=== PATIENT | female | born 1985 | race African-American/Black ===

== ENCOUNTER 2017-11-07 11:50 | Observation (INO) | payer BC, OTHER ==
[2017-11-07 13:12] LABS: ADD UMIC NO; UR ASCORBIC ACID NEGATIVE (NEGATIVE); UR BILIRUBIN (Dip) NEGATIVE (NEGATIVE); UR BLOOD (Dip) NEGATIVE (NEGATIVE); UR CLARITY CLEAR (CLEAR); UR COLOR YELLOW (YELLOW); UR GLUCOSE (Dip) NEGATIVE (NEGATIVE); UR KETONES (Dip) NEGATIVE (NEGATIVE); UR LEUKOCYTE ESTERASE (Dip) NEGATIVE Leu/ul (NEGATIVE); UR NITRITE (Dip) NEGATIVE (NEGATIVE); UR SPECIFIC GRAVITY (Dip) 1.013 (1.003-1.030); UR TOTAL PROTEIN (Dip) NEGATIVE (NEGATIVE); UR UROBILINOGEN (Dip) NEGATIVE (NEGATIVE)
[2017-11-07 13:25] LABS: AMPHETAMINE/METHAMPHETAMINE Negative (NEGATIVE); BARBITURATES Negative (NEGATIVE); BENZODIAZEPINES Negative (NEGATIVE); CANNABINOIDS Negative (NEGATIVE); OPIATES Negative (NEGATIVE)
[2017-11-07 13:26] LABS: COCAINE Positive (NEGATIVE)
[2017-11-07 14:55] LABS: ADD MAN DIFF? NO
[2017-11-07 15:02] LABS: BASOPHILS % 0.5 % (0.0-2.0); EOSINOPHILS % 0.5 % (0.0-7.0); HEMATOCRIT 35.6 % (37.0-47.0); HEMOGLOBIN 11.3 g/dl (12.0-16.0); LYMPHOCYTES # 1.8 10^3/ul (0.8-2.9); LYMPHOCYTES % 21.7 % (15.0-51.0); MEAN CORPUSCULAR HGB CONC 31.7 g/dl (32.0-37.0); MEAN CORPUSCULAR VOLUME 88.3 fl (82.0-101.0); MEAN PLATELET VOLUME 9.5 fl (7.4-10.4); MONOCYTE # 0.5 10^3/ul (0.3-0.9); MONOCYTES % 5.8 % (0.0-11.0); NEUTROPHIL # 5.8 10^3/ul (1.6-7.5); NEUTROPHILS % 70.8 % (39.0-77.0); PLATELET COUNT 326 10^3/UL (140-415); RED BLOOD COUNT 4.03 10^6/ul (4.20-5.40); RED CELL DISTRIBUTION WIDTH 14.2 % (11.5-14.5)
[2017-11-07 15:02] LABS: WHITE BLOOD COUNT 8.1 10^3/ul (4.8-10.8)
[2017-11-07 16:11] LABS: HEPATITIS B SURFACE ANTIGEN NEGATIVE (NEGATIVE)
[2017-11-07 16:22] LABS: HIV 1&2 ANTIBODY NEGATIVE (NEGATIVE)
[2017-11-07] MEDS: LACTATED RINGER'S 1,000 ML IV (18:39)
[2017-11-07] MEDS: CALCIUM CARBONATE 500 MG CHEW TAB PO (21:17)
[2017-11-08] MEDS: LACTATED RINGER'S 1,000 ML IV (02:24)
[2017-11-08 21:46] LABS: RAPID PLASMA REAGIN NONREACTIVE (NR)
[2017-11-09 12:12] LABS: RUBELLA ANTIBODY - IGG 1.32 index; RUBELLA ANTIBODY - IGM <20.00 AU/mL
== END 2017-11-08 10:23 | disposition home or self-care (01) ==
LOC: OBT 11:50 → SDS 11:50 → L-D 12:10 → OBT 15:50 → L-D 15:50
DX: O47.1 False labor at or after 37 completed weeks of gestation (principal); Z3A.39 39 weeks gestation of pregnancy
CPT/HCPCS: 76815; 76818; 80307; 81003; 85025; 86592; 86703; 86762; 86900; 86901; 87340; 99217

== ENCOUNTER 2017-11-12 16:31 | Outpatient (CLI) | payer BC ==
[2017-11-12 17:58] LABS: ADD UMIC YES; UR ASCORBIC ACID NEGATIVE (NEGATIVE); UR BILIRUBIN (Dip) NEGATIVE (NEGATIVE); UR BLOOD (Dip) NEGATIVE (NEGATIVE); UR CLARITY CLEAR (CLEAR); UR COLOR YELLOW (YELLOW); UR GLUCOSE (Dip) NEGATIVE (NEGATIVE); UR KETONES (Dip) NEGATIVE (NEGATIVE); UR LEUKOCYTE ESTERASE (Dip) 1+ Leu/ul (NEGATIVE); UR NITRITE (Dip) NEGATIVE (NEGATIVE); UR RBC 1 /HPF (0-5); UR SPECIFIC GRAVITY (Dip) 1.011 (1.003-1.030); UR SQUAMOUS EPITHELIAL CELL FEW /HPF (FEW); UR TOTAL PROTEIN (Dip) NEGATIVE (NEGATIVE); UR UROBILINOGEN (Dip) NEGATIVE (NEGATIVE); UR WBC 2 /HPF (0-5)
[2017-11-12] MEDS: LACTATED RINGER'S 1,000 ML IV (19:41)
[2017-11-12] MEDS: CALCIUM CARBONATE 500 MG CHEW TAB PO (22:16)
== END 2017-11-12 23:47 | disposition home or self-care (01) ==
LOC: OBT 16:31 → L-D 16:32
DX: O26.893 Other specified pregnancy related conditions, third trimester (principal); R10.9 Unspecified abdominal pain; O34.219 Maternal care for unspecified type scar from previous cesarean delivery; O99.323 Drug use complicating pregnancy, third trimester; F14.10 Cocaine abuse, uncomplicated; Z3A.36 36 weeks gestation of pregnancy
CPT/HCPCS: 36415; 76818; 81001; 96360